=== PATIENT | male | born 1975 | race Caucasian/White ===

== ENCOUNTER 2019-04-10 15:09 | Emergency (ER) | payer MEDICAID ==
[~2019-04-10] VITALS: Ht 167.6 cm; Wt 80.3 kg
[2019-04-10 15:21] VITALS: BP 137/83; Ht 167.6 cm; Wt 80.3 kg
== END 2019-04-10 18:08 | disposition left against medical advice (07) ==
LOC: ED 15:09
DX: R07.89 Other chest pain (principal); R11.10 Vomiting, unspecified; R51 Headache